=== PATIENT | female | born 1965 | race Caucasian/White ===

== ENCOUNTER 2024-09-07 14:30 | Inpatient (IN) | payer OTHER ==
[2024-09-07] MEDS: SODIUM CHLORIDE 0.9% 1,000 ML IV ONE (15:59)
[2024-09-07] MEDS: diphenhydrAMINE 50 MG/ML 1 ML VIAL IVP STA (15:59)
[2024-09-07] MEDS: METOCLOPRAMIDE 5 MG/ML 2 ML VIAL IVP STA (16:01)
--- NOTE | 2024-09-07 16:23 | ED ---
Fall HPI - General Source: patient, EMS Mode of arrival: EMS <Margie Montes - Last Filed: 09/07/24 16:22> - General Source: patient, EMS, RN notes reviewed, old records reviewed Mode of arrival: EMS - History of Present Illness MD Complaint: fall -: hour(s) Fall From: from height (distance) Place Fall Occurred: home Loss of Consciousness: none Prolonged Down Time?: no Symptoms Prior to Fall: none Location - Extremities: Left: Thigh Severity: severe Severity scale (1-10): 10 Quality: sharp Context: tripped/slipped <Sebastián Valenzuela - Last Filed: 09/07/24 19:12> - General Chief Complaint: Fall Stated Complaint: Fall-L side hip injury - History of Present Illness Initial Comments: 59-year-old female presents emergency department after she sustained a fall in her driveway. Patient was sitting on a golf cart when she lost her balance and fell onto her left side. Patient was unable to ambulate after the incident. She was brought in by EMS who provided her with 20 mg of morphine in 4 divided doses. She also received 4 mg of Zofran. Denies hitting her head. No neck or back pain. Has pain in the left hip which extends to the top of the left femur. Patient admits to nausea without vomiting. No chest pain or difficulty breathing. No other alleviating, precipitating or modifying factors (Margie Montes) This is a 59-year-old female falling off a golf cart onto the driveway severe left hip pain (Sebastián Valenzuela) - Related Data Home Medications Medication Instructions Recorded Confirmed Calcium Carbonate [Calcium] 600 mg PO DAILY 09/07/24 09/07/24 Cholecalciferol (Vitamin D3) 50 mcg PO DAILY 09/07/24 09/07/24 [Vitamin D3 (50 Mcg = 2000 Iu)] Cyanocobalamin (Vitamin B-12) 1,000 mcg PO DAILY 09/07/24 09/07/24 [Vitamin B-12] Ferrous Sulfate [Feosol] 325 mg PO DAILY 09/07/24 09/07/24 Magnesium Oxide [Mag-Ox] 400 mg PO DAILY 09/07/24 09/07/24 [place]-3/Dha/Epa/Fish Oil [Fish Oil 1 cap PO DAILY 09/07/24 09/07/24 1,000 mg Softgel] Turmeric Root Extract [Turmeric] 500 mg PO DAILY 09/07/24 09/07/24 Allergies Allergy/AdvReac Type Severity Reaction Status Date / Time Sulfa (Sulfonamide Allergy Unknown Verified 09/07/24 17:52 Antibiotics) Childhood Review of Systems ROS Other: All systems not noted in ROS Statement are negative. <Margie Montes - Last Filed: 09/07/24 16:22> ROS Other: All systems not noted in ROS Statement are negative. <Sebastián Valenzuela - Last Filed: 09/07/24 19:12> ROS Statement: Those systems with pertinent positive or pertinent negative responses have been documented in the HPI. Past Medical History Past Medical History: No Reported History History of Any Multi-Drug Resistant Organisms: None Reported Past Surgical History: Appendectomy Past Psychological History: Anxiety Smoking Status: Current every day smoker Past Alcohol Use History: Occasional Past Drug Use History: None Reported <Margie Montes - Last Filed: 09/07/24 16:22> General Exam General appearance: alert, in no apparent distress Head exam: Present: atraumatic, normocephalic, normal inspection Eye exam: Present: normal appearance, PERRL, EOMI. Absent: scleral icterus, conjunctival injection, periorbital swelling ENT exam: Present: normal exam, mucous membranes moist Neck exam: Present: normal inspection. Absent: tenderness, meningismus, lymphadenopathy Respiratory exam: Present: normal lung sounds bilaterally. Absent: respiratory distress, wheezes, rales, rhonchi, stridor Cardiovascular Exam: Present: regular rate, normal rhythm, normal heart sounds. Absent: systolic murmur, diastolic murmur, rubs, gallop, clicks GI/Abdominal exam: Present: soft, normal bowel sounds. Absent: distended, tenderness, guarding, rebound, rigid Extremities exam: Present: tenderness (To palpation of the left proximal hip down to the mid femur), normal capillary refill. Absent: pedal edema, joint swe lling, calf tenderness Back exam: Present: normal inspection Neurological exam: Present: alert, oriented X3, CN II-XII intact Psychiatric exam: Present: normal affect, normal mood Skin exam: Present: warm, dry, intact, normal color. Absent: rash <Margie Montes - Last Filed: 09/07/24 16:22> General appearance: alert, in no apparent distress Head exam: Present: atraumatic, normocephalic, normal inspection Eye exam: Present: normal appearance, PERRL, EOMI. Absent: scleral icterus, conjunctival injection, periorbital swelling ENT exam: Present: normal exam, mucous membranes moist Neck exam: Present: normal inspection. Absent: tenderness, meningismus, lym phadenopathy Respiratory exam: Present: normal lung sounds bilaterally. Absent: respiratory distress, wheezes, rales, rhonchi, stridor Cardiovascular Exam: Present: regular rate, normal rhythm, normal heart sounds. Absent: systolic murmur, diastolic murmur, rubs, gallop, clicks GI/Abdominal exam: Present: soft, normal bowel sounds. Absent: distended, tenderness, guarding, rebound, rigid Extremities exam: Present: normal inspection, full ROM, normal capillary refill. Absent: tenderness, pedal edema, joint swelling, calf tenderness Back exam: Present: normal inspection Neurological exam: Present: alert, oriented X3, CN II-XII intact Psychiatric exam: Present: normal affect, normal mood Skin exam: Present: warm, dry, intact, normal color. Absent: rash <Sebastián Valenzuela - Last Filed: 09/07/24 19:12> Course <Sebastián Valenzuela - Last Filed: 09/07/24 19:12> Vital Signs 09/07/24 09/07/24 09/07/24 14:37 16:05 18:14 Temperature 97.6 F Pulse Rate 73 76 65 Respiratory 18 16 16 Rate Blood Pressure 152/72 136/54 128/65 O2 Sat by Pulse 95 94 L 95 Oximetry - Reevaluation(s) Reevaluation #1: 09/07/24 19:12 Medical records reviewed (Sebastián Valenzuela) Reevaluation #2: 09/07/24 19:12 Pain is difficult to control (Sebastián Valenzuela) - Consultations Consultation #1: Spoke with orthopedics who agreed to admit this patient (Sebastián Valenzuela) Medical Decision Making <Margie Montes Ganesh - Last Filed: 09/07/24 16:22> - Lab Data Result diagrams: 09/07/24 14:53 09/07/24 14:53 - EKG Data -: EKG Interpreted by Me (EKG is sinus bradycardia 58 TN 173 QRS 81 QTc 425) - Radiology Data Radiology results: report reviewed (Chest and pelvis left hip x-ray positive left hip subcapital fracture), image reviewed <SmithalewisSebastián Ben - Last Filed: 09/07/24 19:12> - Medical Decision Making Was pt. sent in by a medical professional or institution ([facility], [employer], urgent care, hospital, or half-way...) When possible be specific @ -[No] Did you speak to anyone other than the patient for history (EMS, parent, family, police, friend...)? What history was obtained from this source @ -[No] Did you review nursing and triage notes (agree or disagree)? Why? @ -[I reviewed and agree with nursing and triage notes] Were old charts reviewed (outside hosp., previous admission, EMS record, old EKG , old radiological studies, urgent care reports/EKG's, half-way records)? Report findings @ -[No old charts were reviewed] Differential Diagnosis (chest pain, altered mental status, abdominal pain women, abdominal pain men, vaginal bleeding, weakness, fever, dyspnea, syncope, headache, dizziness, GI bleed, back pain, seizure, CVA, palpatations, mental health, musculoskeletal)? @ -[not applicable] EKG interpreted by me (3pts min.). @ -[As above] X-rays interpreted by me (1pt min.). @ -[None done] CT interpreted by me (1pt min.). @ -[None done] U/S interpreted by me (1pt. min.). @ -[None done] What testing was considered but not performed or refused? (CT, X-rays, U/S, labs)? Why? @ -[None] What meds were considered but not given or refused? Why? @ -[None] Did you discuss the management of the patient with other professionals (professionals i.e. [facility] Lynch, [employer]ER, lab, RT, psych nurse, foster care social worker, tar distributor operator, teacher, structural engineering drafting officer, pillowcase maker)? Give summary @ -[No] Was smoking cessation discussed for >3mins.? @ -[No] Was critical care preformed (if so, how long)? @ -[No] Were there social determinants of health that impacted care today? How? (Homelessness, low income, unemployed, alcoholism, drug addiction, transportation, low edu. Level, literacy, decrease access to med. care, [facility], rehab)? @ -[No] Was there de-escalation of care discussed even if they declined (Discuss DNR or withdrawal of care, Hospice)? DNR status @ -[No] What co-morbidities impacted this encounter? (DM, HTN, Smoking, COPD, CAD, Cancer, CVA, ARF, Chemo, Hep., AIDS, mental health diagnosis, sleep apnea, morbid obesity)? @ -[None] Was patient admitted / discharged? Hospital course, mention meds given and route, prescriptions, significant lab abnormalities, going to OR and other pertinent info. @ -[hospital course] Undiagnosed new problem with uncertain prognosis? @ -[No] Drug Therapy requiring intensive monitoring for toxicity (Heparin, Nitro, Insulin, Cardizem)? @ -[No] Were any procedures done? @ -[No] Diagnosis/symptom? @ -[default] Acute, or Chronic, or Acute on Chronic? @ -[default] Uncomplicated (without systemic symptoms) or Complicated (systemic symptoms)? @ -[default] Side effects of treatment? @ -[No] Exacerbation, Progression, or Severe Exacerbation? @ -[No] Poses a threat to life or bodily function? How? (Chest pain, [place], [place], pneumonia, PE, COPD, DKA, ARF, appy, cholecystitis, CVA, Diverticulitis, Homicidal, Suicidal, threat to staff... and all critical care pts) @ -[No] (Margie Montes) 59 female will be admitted for fall with left hip fracture subcapital left hip, pain is currently controlled (Sebastián Valenzuela) - Lab Data Lab Results 09/07/24 09/07/24 09/07/24 Range/Units 14:53 14:53 14:53 WBC 9.88 (4.50-10.00) 10*3/uL RBC 4.38 (4.10-5.20) 10*6/uL Hgb 14.3 (12.0-15.0) g/dL Hct 40.6 (37.2-46.3) % MCV 92.7 (80.0-97.0) fL MCH 32.6 H (27.0-32.0) pg MCHC 35.2 (32.0-37.0) g/dL Plt Count 285 (140-440) 10*3/uL MPV 10.2 (9.5-12.2) fL Immature Gran % (Auto) 0.4 % Neutrophils % 77.7 % Lymphocytes % 17.6 % Monocytes % 3.7 % Eosinophils % 0.4 % Basophils % 0.2 % Immature Gran # 0.04 (0.00-0.04) 10*3/uL Neutrophils # 7.67 (1.80-7.70) 10*3/uL Lymphocytes # 1.74 (0.90-5.00) 10*3/uL Monocytes # 0.37 (0.20-1.00) 10*3/uL Eosinophils # 0.04 (0.04-0.35) 10*3/uL Basophils # 0.02 (0.00-0.10) 10*3/uL PT 10.8 (10.0-12.5) sec INR 1.0 (<1.2) APTT 26.2 (22.0-30.0) sec Sodium 139 (137-145) mmol/L Potassium 3.6 (3.5-5.1) mmol/L Chloride 107 (98-107) mmol/L Carbon Dioxide 25 (22-30) mmol/L Anion Gap 7 mmol/L BUN 10 (7-17) mg/dL Creatinine 0.58 (0.52-1.04) mg/dL Est GFR (CKD-EPI)AfAm >90 (>60 ml/min/1.73 sqM) Est GFR (CKD-EPI)NonAf >90 (>60 ml/min/1.73 sqM) Glucose 113 H (74-99) mg/dL Plasma Lactic Acid Levar (0.7-2.0) mmol/L Calcium 9.2 (8.4-10.2) mg/dL Phosphorus 3.1 (2.5-4.5) mg/dL Magnesium 1.8 (1.6-2.3) mg/dL Total Bilirubin 0.7 (0.2-1.3) mg/dL AST 30 (14-36) U/L ALT 20 (4-34) U/L Alkaline Phosphatase 73 (38-126) U/L Troponin I (0.000-0.034) ng/mL Total Protein 6.9 (6.3-8.2) g/dL Albumin 4.2 (3.5-5.0) g/dL 09/07/24 09/07/24 Range/Units 14:53 14:53 WBC (4.50-10.00) 10*3/uL RBC (4.10-5.20) 10*6/uL Hgb (12.0-15.0) g/dL Hct (37.2-46.3) % MCV (80.0-97.0) fL MCH (27.0-32.0) pg MCHC (32.0-37.0) g/dL Plt Count (140-440) 10*3/uL MPV (9.5-12.2) fL Immature Gran % (Auto) % Neutrophils % % Lymphocytes % % Monocytes % % Eosinophils % % Basophils % % Immature Gran # (0.00-0.04) 10*3/uL Neutrophils # (1.80-7.70) 10*3/uL Lymphocytes # (0.90-5.00) 10*3/uL Monocytes # (0.20-1.00) 10*3/uL Eosinophils # (0.04-0.35) 10*3/uL Basophils # (0.00-0.10) 10*3/uL PT (10.0-12.5) sec INR (<1.2) APTT (22.0-30.0) sec Sodium (137-145) mmol/L Potassium (3.5-5.1) mmol/L Chloride (98-107) mmol/L Carbon Dioxide (22-30) mmol/L Anion Gap mmol/L BUN (7-17) mg/dL Creatinine (0.52-1.04) mg/dL Est GFR (CKD-EPI)AfAm (>60 ml/min/1.73 sqM) Est GFR (CKD-EPI)NonAf (>60 ml/min/1.73 sqM) Glucose (74-99) mg/dL Plasma Lactic Acid Levar 1.9 (0.7-2.0) mmol/L Calcium (8.4-10.2) mg/dL Phosphorus (2.5-4.5) mg/dL Magnesium (1.6-2.3) mg/dL Total Bilirubin (0.2-1.3) mg/dL AST (14-36) U/L ALT (4-34) U/L Alkaline Phosphatase (38-126) U/L Troponin I <0.012 (0.000-0.034) ng/mL Total Protein (6.3-8.2) g/dL Albumin (3.5-5.0) g/dL Disposition <Margie Montes - Last Filed: 09/07/24 16:22> Is patient prescribed a controlled substance at d/c from ED?: No Time of Disposition: 18:00 <Sebastián Valenzuela - Last Filed: 09/07/24 19:12> Clinical Impression: Fall, Hip fracture, left Disposition: ADMITTED IP TO THIS HOSP Condition: Fair
--- NOTE | 2024-09-07 16:54 | XR ---
EXAMINATION TYPE: XR Hip LT and AP Pelvis DATE OF EXAM: 09/07/2024 4:44 PM COMPARISON: None CLINICAL INDICATION: Female, 59 years old with history of fall, pain; PHH, pain TECHNIQUE: XR Hip LT and AP Pelvis; hip was examined in the frontal and lateral projections and a AP pelvis. FINDINGS: Acute left femoral subcapital femoral neck fracture with varus angulation. The pelvis appea rs intact. The right hip appears intact. Surgical clips project over the right sacroiliac joint. IMPRESSION: Acute left femoral subcapital femoral neck fracture with varus angulation. [facility], , 09/07/2024 4:52 PM
[2024-09-07] MEDS: KETOROLAC 15 MG/ML 1 ML VIAL IVP STA (17:00)
[2024-09-07] MEDS: FAMOTIDINE 20 MG/2 ML VIAL IV STA (17:02)
--- NOTE | 2024-09-07 17:02 | XR ---
EXAMINATION TYPE: XR chest 1V DATE OF EXAM: 09/07/2024 4:44 PM COMPARISON: None CLINICAL INDICATION: Female, 59 years old with history of Pre OP Clearance; left hip pain. TECHNIQUE: XR chest 1V Frontal view of the chest. FINDINGS: Lungs/Pleura: There is no evidence of pleural effusion, focal consolidation, or pneumothorax. Pulmonary vascularity: Unremarkable. Heart/mediastinum: Cardiomediastinal silhouette is unremarkable. Musculoskeletal: No acute osseous pathology. Other findings: None IMPRESSION: No acute cardiopulmonary disease/process. [facility], , 09/07/2024 5:00 PM
[2024-09-07] MEDS: ONDANSETRON 4 MG/2 ML VIAL IVP STA (18:02)
[2024-09-07] MEDS: MORPHINE SULFATE 4 MG/ML SYRINGE IV STA (18:03)
[2024-09-07 18:18] LABS: Basophils # (A) 0.02 10*3/uL (0.00-0.10); Basophils % (A) 0.2 %; Eosinophils # (A) 0.04 10*3/uL (0.04-0.35); Eosinophils % (A) 0.4 %; HCT 40.6 % (37.2-46.3); HGB 14.3 g/dL (12.0-15.0); Lymphocytes # (A) 1.74 10*3/uL (0.90-5.00); Lymphocytes % (A) 17.6 %; MCH 32.6 pg (27.0-32.0); MCHC 35.2 g/dL (32.0-37.0); MCV 92.7 fL (80.0-97.0); Mean Platelet Volume 10.2 fL (9.5-12.2); Monocytes # (A) 0.37 10*3/uL (0.20-1.00); Monocytes % (A) 3.7 %; Neutrophils # (A) 7.67 10*3/uL (1.80-7.70); Neutrophils % (A) 77.7 %; Platelet Count 285 10*3/uL (140-440); RBC 4.38 10*6/uL (4.10-5.20); RDW 12.2 % (11.5-14.5); WBC 9.88 10*3/uL (4.50-10.00)
[2024-09-07] MEDS ORDERED: NALOXONE 0.4 MG/ML 1 ML VIAL IV PRN (18:23)
[2024-09-07 18:26] LABS: ALT 20 U/L (4-34); AST 30 U/L (14-36); African American GFR (CKD) >90 (>60 ml/min/1.73 sqM); Albumin 4.2 g/dL (3.5-5.0); Alkaline Phosphatase 73 U/L (38-126); Anion Gap 7 mmol/L; Blood Urea Nitrogen 10 mg/dL (7-17); Calcium 9.2 mg/dL (8.4-10.2); Carbon Dioxide 25 mmol/L (22-30); Chloride 107 mmol/L (98-107); Glucose 113 mg/dL (74-99); Magnesium 1.8 mg/dL (1.6-2.3); Non-African American GFR(CKD) >90 (>60 ml/min/1.73 sqM); Phosphorus 3.1 mg/dL (2.5-4.5); Potassium 3.6 mmol/L (3.5-5.1); Sodium 139 mmol/L (137-145); Total Bilirubin 0.7 mg/dL (0.2-1.3); Total Protein 6.9 g/dL (6.3-8.2)
[2024-09-07 18:29] LABS: Partial Thromboplastin Time 26.2 sec (22.0-30.0); Prothrombin Time 10.8 sec (10.0-12.5)
[2024-09-07] MEDS: SODIUM CHLORIDE 0.9% 1,000 ML IV SCH (18:52)
[2024-09-07 19:56] LABS: Amorphous Sediment,Urine Rare /hpf; Appearance,Urine Turbid (Clear); Bacteria,Urine Rare /hpf; Bilirubin,Urine Negative (Negative); Blood,Urine Negative (Negative); Color,Urine Light Yellow; Glucose,Urine (UA) Negative (Negative); Ketones,Urine Negative (Negative); Leukocyte Esterase,Urine Negative (Negative); Mucus,Urine Rare /hpf; Nitrite,Urine Negative (Negative); PH, Urine 7.5 (5.0-8.0); Protein,Urine Negative (Negative); RBC,Urine 2 /hpf (0-5); Specific Gravity,Urine 1.013 (1.001-1.035); Squamous Epithelial Cell,Urine 1 /hpf (0-4); Urobilinogen,Urine <2.0 mg/dL (<2.0); WBC,Urine 4 /hpf (0-5)
[2024-09-07] MEDS: HYDROmorphone 2 MG/ML 1 ML SYRINGE IVP PRN (23:42)
[2024-09-07] MEDS: ONDANSETRON 4 MG/2 ML VIAL IVP PRN (23:49)
[2024-09-08] MEDS ORDERED: HYDROcodone/APAP 7.5-325MG 1 EACH TAB PO PRN (00:24)
[2024-09-08] MEDS: HYDROcodone/APAP 7.5-325MG 1 EACH TAB PO PRN (03:06)
--- NOTE | 2024-09-08 08:08 | P.HPOR ---
History of Present Illness The patient is a very pleasant relatively healthy 59-year-old female who was admitted with a left hip fracture. The patient's only relevant medical history is that she smokes cigarettes up to a pack a day. According to the patient and her she was sitting on the back of a golf cart when she lost her balance and fell onto her right hip. She was immediately painful in the hip and unable to ambulate. She was admitted through our ER with a displaced femoral neck fracture. This morning she is complaining of severe pain in her left hip. She does have some prior hip pain. She is relatively active at baseline without a ssistive device. She and her own a restaurant. Past Medical History Past Medical History: No Reported History History of Any Multi-Drug Resistant Organisms: None Reported Past Surgical History: Appendectomy Past Anesthesia/Blood Transfusion Reactions: Unable to Obtain Past Psychological History: Anxiety Smoking Status: Current every day smoker Past Alcohol Use History: Occasional Past Drug Use History: None Reported Medications and Allergies Home Medications Medication Instructions Recorded Confirmed Type Calcium Carbonate [Calcium] 600 mg PO DAILY 09/07/24 09/07/24 History Cholecalciferol (Vitamin D3) 50 mcg PO DAILY 09/07/24 09/07/24 History [Vitamin D3 (50 Mcg = 2000 Iu)] Cyanocobalamin (Vitamin B-12) 1,000 mcg PO DAILY 09/07/24 09/07/24 History [Vitamin B-12] Ferrous Sulfate [Feosol] 325 mg PO DAILY 09/07/24 09/07/24 History Magnesium Oxide [Mag-Ox] 400 mg PO DAILY 09/07/24 09/07/24 History [place]-3/Dha/Epa/Fish Oil [Fish Oil 1 cap PO DAILY 09/07/24 09/07/24 History 1,000 mg Softgel] Turmeric Root Extract [Turmeric] 500 mg PO DAILY 09/07/24 09/07/24 History Allergies Allergy/AdvReac Type Severity Reaction Status Date / Time Sulfa (Sulfonamide Allergy Unknown Verified 09/07/24 17:52 Antibiotics) Childhood Physical Examination The patient is resting comfortably in her bed. She is alert and able to answer questions. Her head is normocephalic and atraumatic. She demonstrates nonlabored breathing with symmetric chest expansion. Her abdomen is soft and nonobese. She has palpable peripheral pulses. Her upper extremities are without deformity or nontender. Her right lower extremity is without deformity and nontender. A focused exam of the left lower extremity was conducted. On inspection the leg is shortened and externally rotated. The skin over the anterior aspect of the left hip has no scars or lesions. Her thigh and calf are soft and compressible. Femoral nerve function is intact. She is able to actively plantarflex and dorsiflex her ankle and her toes. Results X-rays of the pelvis and left hip show a displaced subcapital femoral neck fracture - Labs Labs: Abnormal Lab Results - Last 24 Hours (Table) 09/07/24 09/07/24 09/07/24 Range/Units 14:53 14:53 19:23 MCH 32.6 H (27.0-32.0) pg Glucose 113 H (74-99) mg/dL Urine Appearance Turbid H (Clear) Amorphous Sediment Rare H (None) /hpf Urine Bacteria Rare H (None) /hpf Urine Mucus Rare H (None) /hpf H & H 09/07/24 Range/Units 14:53 Hgb 14.3 (12.0-15.0) g/dL Hct 40.6 (37.2-46.3) % Coagulation 09/07/24 Range/Units 14:53 INR 1.0 (<1.2) Result Diagrams: 09/07/24 14:53 09/07/24 14:53 Assessment and Plan Assessment: Displaced subcapital femoral neck fracture Current everyday cigarette smoker Plan: I met with the patient and her to discuss her injury and treatment options. Based on her age, activity level, state of health, and fracture characteristics on x-ray I recommended a direct anterior left total hip replacement. We discussed the procedure at length including the recovery and potential risks and complications. The patient understands that she has an elevated risk of delayed wound healing and infection due to her smoking. She was strongly encouraged to quit smoking in the perioperative period. Internal medicine has been consulted for preoperative clearance and perioperative medical management. The patient is to remain on bedrest and strictly nonweightbearing on the left lower extremity. She is to be NPO. Will plan on surgery later today if she is cleared by internal medicine. Time with Patient: Greater than 30
--- NOTE | 2024-09-08 09:05 | P.CONS ---
History of Present Illness - Reason for Consult Consult date: 09/08/24 - History of Present Illness Patient is a 59-year-old female with history of nicotine dependence presenting after mechanical fall. Reportedly, patient was sitting on a golf cart and lost her balance and fell resulting in injury. Unable to ambulate after accident. He denies any fevers, chills, chest pain, shortness of breath, abdominal pain, nausea, vomiting. She has been able to move her left lower extremity due to laurence n. She smokes about half a pack a day. In the ED, temperature was 97.6, pulse 73, respiratory rate 18, blood pressure 152/72, saturating 95% on room air. WBC 9.88, hemoglobin 14.3, platelet 285, cr eatinine 0.58, troponin negative, urinalysis negative. Hip x-rays showed acute left femoral subcapital femoral neck fracture with varus angulation. Chest x- ray independently interpreted, showed no acute process. EKG independently interpreted, shows sinus bradycardia. Sound physicians consulted for perioperative risk assessment. Pertinent positives and negatives as discussed in HPI, a complete review of systems was performed and all other systems are negative. Patient seen and examined at bedside. Vital signs reviewed General: nontoxic, no distress, appears at stated age Derm: warm, dry Head: atraumatic, normocephalic, symmetric Eyes: EOMI, no lid lag, anicteric sclera, pupils equal round reactive to light ENT: Nose and ears atraumatic Neck: No thyromegaly, supple Mouth: no lip lesion, mucus membranes moist Cardiovascular: S1S2 reg, grade 2 systolic murmur, no edema Lungs: clear to auscultation bilateral, no rhonchi, no rales, no wheeze, no accessory muscle use Abdominal: soft, nontender to palpation, no guarding, no appreciable organomegaly Ext: Unable to move left lower extremity Neuro: CN II-XII grossly intact Psych: Alert, oriented, appropriate affect Assessment/Plan: Active: Perioperative risk assessment - Per NSQIP risk calculator, she has below average risk of serious complication 4.1%, 3.8% of any complication, 0.2% of , 0.2% of cardiac complications, 1 0.7% risk of discharged to nursing or rehab facility - Patient is otherwise medically optimized for surgical procedure Mechanical fall Acute left femoral neck fracture - Pain control with oral [place] as needed, IV Dilaudid as needed, monitor for sedation - Okay to continue normal saline 130 cc an hour - Patient currently n.p.o. - PT OT postsurgical procedure - DVT prophylaxis and bowel regimen per orthopedic surgery Nicotine dependence - Counseled regarding smoking cessation Systolic murmur - Outpatient follow-up Thank you for allowing us to participate in the care of this pleasant patient. Do not hesitate to contact us with questions. Someone can be reached from the [facility] hospitalist group all hours of the day at [phone] or via [employer]. Past Medical History Past Medical History: No Reported History History of Any Multi-Drug Resistant Organisms: None Reported Past Surgical History: Appendectomy Past Anesthesia/Blood Transfusion Reactions: Unable to Obtain Past Psychological History: Anxiety Smoking Status: Current every day smoker Past Alcohol Use History: Occasional Past Drug Use History: None Reported Medications and Allergies Home Medications Medication Instructions Recorded Confirmed Type Calcium Carbonate [Calcium] 600 mg PO DAILY 09/07/24 09/07/24 History Cholecalciferol (Vitamin D3) 50 mcg PO DAILY 09/07/24 09/07/24 History [Vitamin D3 (50 Mcg = 2000 Iu)] Cyanocobalamin (Vitamin B-12) 1,000 mcg PO DAILY 09/07/24 09/07/24 History [Vitamin B-12] Ferrous Sulfate [Feosol] 325 mg PO DAILY 09/07/24 09/07/24 History Magnesium Oxide [Mag-Ox] 400 mg PO DAILY 09/07/24 09/07/24 History [place]-3/Dha/Epa/Fish Oil [Fish Oil 1 cap PO DAILY 09/07/24 09/07/24 History 1,000 mg Softgel] Turmeric Root Extract [Turmeric] 500 mg PO DAILY 09/07/24 09/07/24 History Allergies Allergy/AdvReac Type Severity Reaction Status Date / Time Sulfa (Sulfonamide Allergy Unknown Verified 09/07/24 17:52 Antibiotics) Childhood Physical Exam Vitals: Vital Signs Temp Pulse Pulse Resp BP BP Pulse Ox 09/08/24 01:55 98.2 F 59 L 17 118/64 93 L 09/07/24 20:23 65 18 111/57 95 09/07/24 18:14 65 16 128/65 95 09/07/24 16:05 76 16 136/54 94 L 09/07/24 14:37 97.6 F 73 18 152/72 95 Intake and Output 09/07/24 09/08/24 09/08/24 22:59 06:59 14:59 Output Total 300 725 Balance -300 -725 Output: Urine 300 725 Uretheral (Sanchez) 300 Other: Weight 72.575 kg Results CBC & Chem 7: 09/07/24 14:53 09/07/24 14:53 Labs: Abnormal Lab Results - Last 24 Hours (Table) 09/07/24 09/07/24 09/07/24 Range/Units 14:53 14:53 19:23 MCH 32.6 H (27.0-32.0) pg Glucose 113 H (74-99) mg/dL Urine Appearance Turbid H (Clear) Amorphous Sediment Rare H (None) /hpf Urine Bacteria Rare H (None) /hpf Urine Mucus Rare H (None) /hpf
[2024-09-08] MEDS: fentaNYL (PF) 50 MCG/ML 2 ML AMP IVP PRN (17:29)
[2024-09-08] MEDS: DEXAMETHASONE SOD PHOSPHATE 4 MG/ML 1 ML VIAL IVP STA (17:33)
[2024-09-08] MEDS ORDERED: TRANEXAMIC 1,000 MG/100ML-NACL 1,000 MG in SALINE 1 100ML.BAG IVPB PRN (17:45)
[2024-09-08] MEDS: LACTATED RINGERS 1,000 ML BAG IV STA (17:49)
[2024-09-08] MEDS: IV FLUID CONTINUATION 1,000 ML IV ONE (17:49)
[2024-09-08] MEDS ORDERED: GLYCOPYRROLATE 0.2 MG/ML 2 ML VIAL ONE (18:48)
[2024-09-08] MEDS ORDERED: PROPOFOL 10 MG/ML 20 ML VIAL IV ONE (18:48)
[2024-09-08] MEDS ORDERED: MIDAZOLAM 2 MG/2 ML VIAL ONE (18:48)
[2024-09-08] MEDS ORDERED: HYDROmorphone (PF) 1 MG/ML ONE (18:48)
[2024-09-08] MEDS ORDERED: KETAMINE HCL IN 0.9 % NACL 50 MG/5 ML SYRINGE ONE (18:48)
[2024-09-08] MEDS ORDERED: TRANEXAMIC 1,000 MG/100ML-NACL PREMIX BAG ONE (18:48)
[2024-09-08] MEDS ORDERED: ROCURONIUM 10 MG/ML (5 ML VIAL) IV ONE (18:48)
[2024-09-08] MEDS ORDERED: NEOSTIGMINE 1 MG/ML 10 ML VIAL ONE (18:48)
[2024-09-08] MEDS ORDERED: fentaNYL (PF) 50 MCG/ML 2 ML AMP ONE (18:48)
[2024-09-08] MEDS ORDERED: SUCCINYLCHOLINE CHLORIDE 200 MG/10 ML VIAL IV ONE (18:48)
[2024-09-08] MEDS ORDERED: LIDOCAINE 1% INJ 10MG/ML (20 ML MDV) ONE (18:48)
[2024-09-08] MEDS: SODIUM CHLORIDE 0.9% 100 ML with ceFAZolin 2,000 MG IV ONE (18:53)
[2024-09-08] MEDS ORDERED: HYDROmorphone 0.5 MG/0.5 ML SYRINGE IVP PRN (18:54)
[2024-09-08] MEDS ORDERED: MAGNESIUM HYDROXIDE 2,400 MG/30 ML CUP PO PRN (18:54)
[2024-09-08] MEDS ORDERED: NALOXONE 0.4 MG/ML 1 ML VIAL IV PRN (18:54)
[2024-09-08] MEDS ORDERED: HYDROmorphone 2 MG/ML 1 ML SYRINGE IVP PRN (18:54)
[2024-09-08] MEDS ORDERED: hydrOXYzine pamoate 25 MG CAP PO PRN (18:54)
[2024-09-08] MEDS ORDERED: ACETAMINOPHEN TAB 325 MG TAB PO PRN (18:54)
[2024-09-08] MEDS: ROPIVACAINE/EPI/CLONIDINE/KET 50 ML SYRINGE MISCELLANE PRN (19:20)
[2024-09-08] MEDS: LACTATED RINGERS 1,000 ML IV ONE (19:51)
--- NOTE | 2024-09-08 20:39 | P.OP ---
Date of Procedure: 09/08/24 Preoperative Diagnosis: 1. Displaced left subcapital femoral neck fracture 2. Current everyday cigarette smoker Postoperative Diagnosis: Same Procedure(s) Performed: Left direct anterior total hip arthroplasty Implants: 1. Logan Trident II Acetabular Cup, Size #50 2. [place]mar Insignia Size # 3 Femoral Stem, Standard Offset 3. Dual Mobility OD 38 mm, ID 28 mm, -4 mm neck Anesthesia: HAMILTON, regional Surgeon: Chencho Mcwilliams Silk Screen Operator #1: Paxton Hagen Estimated Blood Loss (ml): 300 IV fluids (ml): 800 Pathology: none sent Condition: stable Disposition: PACU Indications for Procedure: The patient is a very pleasant 59-year-old female who was admitted yesterday after a ground-level fall. In the emergency department she was found to have a displaced femoral neck fracture. She was initially admitted under my partner and cleared for surgery. Due to the patient's relatively young age and good state of health I was asked to perform a total hip replacement. I met with the patient and her preoperatively discussed her injury and treatment options. I recommended a direct anterior total hip arthroplasty. The patient has a history of smoking and I strongly encouraged her to quit smoking. She understands that she is at a higher risk of having a complication particularly delayed wound healing or infection due to her smoking. Risks discussed include, but are certainly not limited to, risks from anesthesia, superficial infection requiring local wound care or antibiotics, deep leatha-prosthetic joint infection and the treatment required to eradicate infection, intraoperative fracture, postoperative periprosthetic fracture, damage to local blood vessels or nerves particularly the lateral femoral cutaneous nerve, delayed wound healing requiring local wound care or possibly surgical debridement, hip dislocation, leg length discrepancy, soft tissue irritation around the total hip implant such as iliopsoas tendinitis or trochanteric bursitis, wear and osteolysis from the implants, squeaking or audible noises, groin pain, thigh pain, heterotopic ossification, stiffness, aseptic loosening of the implants, dissatisfaction with surgical outcome, need for revision surgery, DVT, PE, swelling of the operative extremity, acute coronary event, stroke, failure to thrive, and possibly loss of life or limb. The patient understands that while these are the most common complications after an elective hip replacement there are certainly other less common complications possible. They were given ample time to ask questions regarding the potential complications of a hip replacement. Following our discussion the patient provided their verbal and written consent to go forward with an elective total hip replacement. Operative Findings: Displaced transcervical femoral neck fracture. The patient had relatively good bone quality in the proximal femur. Due to the patient's relatively good bone quality and age of 59 I elected to use cementless femoral fixation. Description of Procedure: The patient was identified in the preoperative holding area and the correct hip was marked with my initials. I reviewed the procedure and consent with the patient. All of their questions were answered. The patient was then brought back into the operating room by anesthesia. While on the [facility] anesthesia was administered by the anesthesia team. Preoperative antibiotics and tranexamic acid were also given. After the patient was under anesthesia I examined their ankles to determine their preoperative leg length discrepancy. The skin over the anterior aspect of the hip was shaved to remove hair over the site of planned incision. Both feet and ankles were padded with webril and boots for the [place] were applied. The patient was then carefully transferred onto the [place] table. A perineal post was immediately placed. The arms were placed on arm holders and were well-padded. Both boots were secured to the spars on the [place] table. The patient was positioned so that the pelvis was centered over the post. Nonsterile drapes were applied. A timeout was performed identifying the correct patient, operative extremity, and procedure. At this point fluoroscopy was brought in to take preoperative images of the pelvis and operative hip. A metallic bar was used to create a bi-ischial line for use as a reference to leg length adjustments during the procedure. Global offset was also measured on both the operative and nonoperative leg. Fluoroscopy was then brought out and a pre-scrub using a chlorhexidine scrub brush was performed. The operative limb was then prepped and draped in the standard sterile fashion. An anterior longitudinal incision was made lateral and distal to the ASIS. The skin and subcutaneous tissues were incised sharply. The underlying tensor fascia was identified and incised in its midportion. The fascia was dissected free from the underlying muscle and the muscle belly was retracted. A blunt tipped cobra retractor was placed over the superior neck under the muscle fibers of the gluteus minimus. The deep enveloping fascia of the tensor was incised. The anterior leash of vessels were then identified and cauterized. The fascia between the rectus and the capsule was then incised and the pre-capsular fat was excised. A second Cobra was placed inferior to the neck. The interval between the rectus and iliocapsularis and the hip capsule was developed and a retractor was placed carefully over the anterior rim of the acetabulum. A T-shaped anterior capsulotomy was performed. There was a large hemarthrosis consistent with an acute femoral neck fracture. A subcapital femoral neck fracture was identified. The superior capsular leaflet was left in place in the inferior caps ular flap was excised. The Cobra retractors were placed intracapsularly. We then made a femoral neck osteotomy just distal to the fracture site using a saw. The femoral head was removed, passed off to the back table, and sized. The superior capsular flap was excised. Retractors were placed circumferentially exposing the acetabulum. We then circumferentially debrided the acetabulum free of labrum and osteophytes. The pulvinar was removed to fully visualize the cotyloid fossa. We then sequentially reamed to achieve peripheral fit and excellent bleeding subchondral bone. The socket was thoroughly irrigated. The acetabular component was impacted into the appropriate position using fluoroscopy to guide version, inclination, and depth of insertion. An excellent press-fit was achieved and final position was confirmed using fluoroscopy. The press fit was augmented with 2 bony cancellus dome screws. The liner was then impacted into the socket. Attention was then turned to the femur. The remnant dorsal lateral capsule was excised. The short external rotators were visible and protected. A bone hook was used to confirm appropriate translation of the trochanter away from the ac etabulum. The leg was then extended and adducted and the bone hook was used to elevate the femur for broaching. A box osteotome and blunt tipped canal sound was then utilized to gain access to the femoral canal. We then sequentially broached the femur in appropriate anteversion until excellent torsional stability was achieved. The neck cut was brought flush to the trial broach with a calcar planar. A trial neck and head were then placed onto the broach and the hip was atraumatically reduced under direct visualization. External rotation to 90 was performed to assess stability. Fluoroscopy was brought in. An AP and lateral fluoroscopic image of the proximal femur was obtained to assess position and fill of the trial broach. An AP of the pelvis was then obtained and matched to the preoperative image taken. A bi-ischial bar was then placed and measurements were taken to assess changes in length and offset. The hip was then carefully dislocated, the proximal femur was exposed, and the trial implants were removed. The wound and proximal femur was thoroughly irrigated using sterile saline and pulsatile lavage. The final femoral implant was dispensed and gently tapped into place generating an excellent press-fit. The trunnion was cleansed and the final head was tapped into place to engage the Meza taper. The acetabulum was irrigated and visualized to be free of debris. The hip was carefully reduced. Stability was checked clinically with external rotation to 90 and there was no evidence of instability. Final fluoroscopic images were taken. The wound was then thoroughly irrigated and soaked with a dilute Betadine rinse for 3 minutes. 3 L of sterile saline was irrigated through the wound using pulsatile lavage. Local anesthetic cocktail was injected into the soft tissues around the surgical field. The wound was then closed in layers. A sterile dressing was placed over the surgical incision. The drapes were taken down and the patient was carefully transferred off of the [place] table. Following removal of the boots the leg lengths felt acceptable. The patient was then taken to recovery room having tolerated the procedure well. Paxton Hagen PA-C was required as a skilled esol teacher assistant due to the complexity of surgery for patient positioning, draping, exposure, retraction, closure of wound and application of dressing. PLAN: The patient can weight-bear as tolerated on the operative extremity. 2 doses of postoperative antibiotics. DVT prophylaxis with aspirin 81 mg twice a day based on preoperative risk stratification. Physical therapy for gait training.
--- NOTE | 2024-09-08 20:53 | FL ---
EXAMINATION TYPE: FL guidance operating room, XR Hip Limited LT DATE OF EXAM: 09/08/2024 8:45 PM COMPARISON: Pre Operative Images if available both CT/MRI or plain film CLINICAL INDICATION: Female, 59 years old with history of LEFT ANTERIOR HIP; TECHNIQUE: FL guidance operating room, XR Hip Limited LT, multiple fluoroscopic images provided for p rocedure. DAP: 1.1393 mGym2 Gycm2 uGym2 cGycm2 or equivalent. FINDINGS: Fluoroscopic images during internal fixation/arthroplasty demonstrate hardware in appropriate positio n. Hardware appears intact. No immediate complication identified. IMPRESSION: 1. No evidence for intraoperative complication. 2. Please see the operative/procedural note for further details. [facility], , 09/08/2024 8:51 PM
[2024-09-08] MEDS: ASPIRIN 81 MG PO SCH (21:00)
[2024-09-08] MEDS: SENNOSIDES-DOCUSATE SODIUM 1 EACH TAB PO SCH (21:00)
[2024-09-08] MEDS: SODIUM CHLORIDE 0.9% 1,000 ML IV SCH (21:48)
[2024-09-08] MEDS: ceFAZolin 2 GM in DEXTROSE 5% IN WATER 50 ML IVPB ONE (23:06)
[2024-09-09] MEDS: HYDROcodone/APAP 5-325MG 1 EACH TAB PO PRN (03:25)
[2024-09-09] MEDS: diazePAM 5 MG TAB PO PRN (03:26)
[2024-09-09] MEDS: HYDROmorphone 0.5 MG/0.5 ML SYRINGE IVP PRN (05:46)
--- NOTE | 2024-09-09 08:05 | P.DS ---
Providers Date of admission: 09/07/24 18:23 Attending physician: Anselmo Romero Consults: 09/07/24 21:16 Consult Physician Urgent Consulting Provider: Bridget Davila Consult Reason/Comments: preop op clearance, [facility]iop medical mgmt Do you want consulting provider notified?: Yes Primary care physician: Stated None Hospital Course: The patient is a very pleasant 59-year-old female who is admitted under the care of my partner with a left hip fracture on Sunday. She was cleared for surgery by internal medicine. I met with the patient yesterday and discussed treatment. She underwent a total hip replacement last night. This morning she is doing well. She is in a lot less pain. She is up in a chair. The dressing over her hip is intact. Femoral nerve function is intact. She can actively plantarflex and dorsiflex her ankle and her toes. She was scheduled to work with physical therapy. Internal medicine has assisted with her perioperative medical management. She will likely discharge home later today when she is past therapy and comfortable. Patient Condition at Discharge: Good Plan - Discharge Summary Discharge Rx Participant: Yes New Discharge Prescriptions: New Docusate [Colace] 100 mg PO BID #60 capsule Diclofenac Sodium [Voltaren] 75 mg PO BID #60 tab Ondansetron [Zofran] 4 mg PO Q8HR PRN #12 tab PRN Reason: Nausea Doxycycline Monohydrate 100 mg PO BID #28 cap Aspirin 81 mg PO BID #60 tab Omeprazole [PriLOSEC] 40 mg PO DAILY #30 cap HYDROcodone/APAP 5-325MG [[place] 5-325] 1 - 2 tab PO Q6HR PRN #24 tab PRN Reason: Pain No Action Cyanocobalamin (Vitamin B-12) [Vitamin B-12] 1,000 mcg PO DAILY Turmeric Root Extract [Turmeric] 500 mg PO DAILY [place]-3/Dha/Epa/Fish Oil [Fish Oil 1,000 mg Softgel] 1 cap PO DAILY Magnesium Oxide [Mag-Ox] 400 mg PO DAILY Ferrous Sulfate [Feosol] 325 mg PO DAILY Cholecalciferol (Vitamin D3) [Vitamin D3 (50 Mcg = 2000 Iu)] 50 mcg PO DAILY Calcium Carbonate [Calcium] 600 mg PO DAILY Discharge Medication List Calcium Carbonate [Calcium] 600 mg PO DAILY 09/07/24 [History] Cholecalciferol (Vitamin D3) [Vitamin D3 (50 Mcg = 2000 Iu)] 50 mcg PO DAILY 09/07/24 [History] Cyanocobalamin (Vitamin B-12) [Vitamin B-12] 1,000 mcg PO DAILY 09/07/24 [Histor y] Ferrous Sulfate [Feosol] 325 mg PO DAILY 09/07/24 [History] Magnesium Oxide [Mag-Ox] 400 mg PO DAILY 09/07/24 [History] [place]-3/Dha/Epa/Fish Oil [Fish Oil 1,000 mg Softgel] 1 cap PO DAILY 09/07/24 [History] Turmeric Root Extract [Turmeric] 500 mg PO DAILY 09/07/24 [History] Aspirin 81 mg PO BID #60 tab 09/08/24 [Rx] Diclofenac Sodium [Voltaren] 75 mg PO BID #60 tab 09/08/24 [Rx] Docusate [Colace] 100 mg PO BID #60 capsule 09/08/24 [Rx] Doxycycline Monohydrate 100 mg PO BID #28 cap 09/08/24 [Rx] Omeprazole [PriLOSEC] 40 mg PO DAILY #30 cap 09/08/24 [Rx] Ondansetron [Zofran] 4 mg PO Q8HR PRN #12 tab 09/08/24 [Rx] HYDROcodone/APAP 5-325MG [[place] 5-325] 1 - 2 tab PO Q6HR PRN #24 tab 09/09/24 [Rx] Follow up Appointment(s)/Referral(s): None,Stated [Primary Care Provider] - 1-2 days Chencho Mcwilliams MD [Medical Doctor] - 2 Weeks Activity/Diet/Wound Care/Special Instructions: 1. Weight-bear as tolerated on your operative extremity unless instructed otherwise. Use a walker or other assistive device to ambulate. 2. Leave surgical dressing in place. If your dressing becomes saturated with blood, there is drainage, or the dressing becomes loose please contact the office. 3. It is okay to shower with your surgical dressing, but do not submerge in water (no hot tubs, bath's, swimming etc.) 4. Make sure to take her blood clot prevention medication as prescribed (aspirin, Eliquis, Xarelto, and Plavix are commonly prescribed medications for blood clot prevention) 5. While taking [place] or Percocet for pain make sure you're taking a stool softener (Colace) and drink lots of water. 6. Keep all follow-up appointments as scheduled. You will usually be seen in 1-2 weeks following surgery. 7. Please contact the office with any questions or concerns [phone] Discharge/Stand Alone Forms: Area PCPs Discharge Disposition: HOME WITH HOME HEALTH SERVICES
[2024-09-09 08:07] LABS: BUN/Creat Ratio 15.33 Ratio (12.00-20.00); Basophils # (A) 0.02 X 10*3/uL (0.00-0.10); Basophils % (A) 0.1 %; Blood Urea Nitrogen 9.2 mg/dL (9.0-27.0); Calcium 7.8 mg/dL (8.7-10.3); Carbon Dioxide 20.1 mmol/L (21.6-31.8); Chloride 109 mmol/L (96-109); Eosinophils # (A) 0 X 10*3/uL (0.04-0.35); Eosinophils % (A) 0 %; Glucose 104 mg/dL (70-110); HCT 32.8 % (37.2-46.3); HGB 10.7 g/dL (12.0-15.0); Lymphocytes # (A) 1.11 X 10*3/uL (0.90-5.00); Lymphocytes % (A) 7.3 %; MCH 31.3 pg (27.0-32.0); MCHC 32.6 g/dL (32.0-37.0); MCV 95.9 FL (80.0-97.0); Mean Platelet Volume 10.7 FL (9.5-12.2); Monocytes # (A) 0.56 X 10*3/uL (0.20-1.00); Monocytes % (A) 3.7 %; NRBC Per 100 WBC 0 X 10*3/uL (0.00-0.01); Neutrophils # (A) 13.44 X 10*3/uL (1.80-7.70); Neutrophils % (A) 88.4 %; Platelet Count 238 X 10*3/uL (140-440); Potassium 4.2 mmol/L (3.5-5.5); RBC 3.42 X 10*6/uL (4.10-5.20); RDW 12.2 % (11.5-14.5); Sodium 139 mmol/L (135-145)
[2024-09-09 08:15] VITALS: BP 95/59; PULSE 62; RESP 16; TEMP 98.6
[2024-09-09] MEDS: HYDROcodone/APAP 10-325MG 1 EACH TAB PO PRN (09:29)
[2024-09-09] MEDS: FAMOTIDINE 20 MG TAB PO SCH (09:29)
--- NOTE | 2024-09-09 12:12 | P.PN ---
Subjective Progress Note Date: 09/09/24 Subjective: Patient seen and examined at bedside. No acute events overnight. Pertinent positives and negatives as discussed above, a complete review of systems was performed and all other systems are negative. Vitals Signs Reviewed. General: Nontoxic, no distress, appears at stated age Derm: Warm, dry, dressing clean, dry, intact Head: Atraumatic, normocephalic, symmetric Eyes: EOMI, no lid lag, anicteric sclera Mouth: No lip lesion, mucus membranes moist Cardiovascular: S1S2 reg, no murmur Lungs: CTA bilateral, no rhonchi, no rales, no accessory muscle use Abdominal: Soft, nontender to palpation, no guarding, no appreciable organomegaly Ext: No gross muscle atrophy, no edema, no contractures Neuro: CN II-XI grossly intact, no focal neuro deficits Psych: Alert, oriented, appropriate affect Data Reviewed Today: Pertinent Labs: WBC 15.2, hemoglobin 10.7, creatinine 0.6 Imaging: No new imaging Assessment and Plan: Mechanical fall Acute left femoral neck fracture s/p repair Leukocytosis, anticipated outcome of surgery Acute blood loss anemia, anticipated outcome of surgery - Pain control with oral [place] as needed, IV Dilaudid as needed, monitor for sedation - Okay to continue normal saline 130 cc an hour - DVT prophylaxis and bowel regimen per orthopedic surgery Nicotine dependence - Counseled regarding smoking cessation Systolic murmur - Outpatient follow-up Patient is medically optimized for discharge Thank you for allowing us to participate in the care of this pleasant patient. Do not hesitate to contact us with questions. Someone can be reached from the [facility] hospitalist group all hours of the day at [phone] or via perfect serve. Anticipated discharge time: Objective - Vital Signs Vital signs: Vital Signs Temp 98.6 F 09/09/24 06:52 Pulse 62 09/09/24 06:52 Resp 16 09/09/24 06:52 BP 95/59 09/09/24 06:52 Pulse Ox 99 09/09/24 06:52 FiO2 Intake & Output 09/08/24 09/09/24 09/09/24 18:59 06:59 18:59 Intake Total 1800 300 Output Total 850 700 200 Balance 950 -400 -200 Intake: IV 500 300 Intake, IV Titration 1300 Amount Sodium Chloride 0.9% 1, 1300 000 ml @ 130 mls/hr IV . [facility] Rx#:[id number] Output: Urine 850 500 200 Uretheral (Sanchez) 200 Estimated Blood Loss 200 Other: Voiding Method Indwelling Catheter Indwelling Catheter Toilet # Voids 2 - Labs CBC & Chem 7: 09/09/24 02:57 09/09/24 02:57 Labs: Abnormal Lab Results - Last 24 Hours (Table) 09/09/24 09/09/24 Range/Units 02:57 02:57 WBC 15.20 H (4.50-10.00) X 10*3/uL RBC 3.42 L (4.10-5.20) X 10*6/uL Hgb 10.7 L (12.0-15.0) g/dL Hct 32.8 L (37.2-46.3) % Immature Gran # 0.07 H (0.00-0.04) X 10*3/uL Neutrophils # 13.44 H (1.80-7.70) X 10*3/uL Eosinophils # 0 L (0.04-0.35) X 10*3/uL Carbon Dioxide 20.1 L (21.6-31.8) mmol/L Calcium 7.8 L (8.7-10.3) mg/dL
== END 2024-09-09 12:51 | disposition home or self-care (01) | DRG 522 ==
LOC: EC 14:30 → 4SSUR 18:23
PROVIDERS: ADMIT Orthopaedic Surgery; ATTEND Orthopaedic Surgery
PROC: 0SRB02A Replacement of Left Hip Joint with Metal on Polyethylene Synthetic Substitute, Uncemented, Open Approach (ICD-10-PCS; principal; 2024-09-08 09:40)
DX: S72.012A Unspecified intracapsular fracture of left femur, initial encounter for closed fracture (principal); D62 Acute posthemorrhagic anemia; S72.032A Displaced midcervical fracture of left femur, initial encounter for closed fracture; D72.829 Elevated white blood cell count, unspecified; F41.9 Anxiety disorder, unspecified; F17.210 Nicotine dependence, cigarettes, uncomplicated; Z79.899 Other long term (current) drug therapy; W01.0XXA Fall on same level from slipping, tripping and stumbling without subsequent striking against object, initial encounter; Z88.2 Allergy status to sulfonamides
CPT/HCPCS: 36415; 51702; 71045; 73501; 73502; 80048; 80053; 81001; 82306; 83036; 83605; 83735; 84100; 84484; 85025; 85610; 85730; 86850; 86900; 86901; 93005; 96361; 96374; 96375; 99285